=== PATIENT | female | born 1985 | race Caucasian/White ===

== ENCOUNTER 2019-05-12 17:20 | Emergency (ER) | payer OTHER ==
[~2019-05-12] VITALS: Ht 162.6 cm; Wt 65.8 kg
[~2019-05-12 17:20] MED LIST: BACTRIM DS TAB1 EACH PO; CARBAMAZEPINE200 M3; CIPRO500 MG PO; CIPROFLOXACIN500 M1 PO; CLEOCIN HCL150 MG PO; DOXYCYCLINE 10100 MG PO; FLAGYL500 MG PO; HYDROCODONE-AP1 EAC6 PO; IBUPROFEN 800800 M1 PO; NORCO 5-325 TA1 EACH PO; PHENAZOPYRIDIN200 M2 PO; SEROQUEL 50 MG50 MG; VICODIN 5-5001 EACH PO; ZOFRAN ODT4 MG PO; ZOFRAN4 MG PO; ZYVOX600 MG PO
[2019-05-12 17:57] LABS: ABSOLUTE BASOPHILS 0.1 thou/uL (0.0-0.2); ABSOLUTE EOSINOPHILS 0.3 thou/uL (0.0-0.7); ABSOLUTE LYMPHOCYTES 2.7 thou/uL (0.8-5.3); ABSOLUTE MONOCYTES 0.5 thou/uL (0.0-1.2); ABSOLUTE NEUTROPHILS 4.6 thou/uL (1.6-8.1); BASOPHILS 1.1 %; EOSINOPHILS 3.7 %; HEMATOCRIT 38.5 % (37.0-47.0); HEMOGLOBIN 13.1 gm/dL (12.0-15.0); LYMPHOCYTES 33.1 %; MCH 31.9 pg (26.0-34.0); MCHC 34.1 g/dL (28.0-37.0); MCV 93.7 fL (80.0-100.0); MONOCYTES 5.6 %; MPV 8.2 fl. (7.2-11.1); NUCLEATED RBCS 0 /100WBC; PLATELET COUNT* 290 thou/uL (150-400); POLYS 56.5 %; RBC 4.11 mil/uL (4.20-5.00); RDW-CV 12.4 % (10.5-14.5); WBC 8.2 thou/uL (4.0-11.0)
[2019-05-12 18:11] LABS: CALCIUM 8.9 mg/dL (8.5-10.1); CREATININE 0.8 mg/dL (0.6-1.3); POTASSIUM 3.6 mmol/L (3.5-5.1)
[2019-05-12] MEDS ORDERED: IBUPROFEN 800800 MG PO (18:15)
[2019-05-12 18:23] VITALS: BP 118/74
[2019-05-12 18:27] LABS: TOTAL BILIRUBIN 0.1 mg/dL (<0.1-1.0); TOTAL PROTEIN 7.2 g/dL (6.4-8.2)
--- NOTE | 2019-05-13 14:17 | EKG ---
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 05/13/19 1416 24 24 Ever España MD, FACC /EPI
== END 2019-05-12 18:25 | disposition home or self-care (01) ==
LOC: M.ERS 17:20
PROVIDERS: Emergency Medicine
DX: R07.89 Other chest pain (principal); F17.210 Nicotine dependence, cigarettes, uncomplicated